=== PATIENT | female | born 1950 | race Caucasian/White ===

== ENCOUNTER → 2018-08-27 | Outpatient (CLI) | payer MEDICARE ==
--- NOTE | 2018-08-27 17:04 | RAD ---
Left knee and right hip radiograph 08/27/2018 4:10 PM INDICATION: Chronic left knee pain. Chronic right hip pain COMPARISON: None available. TECHNIQUE: 3 views of the left knee and 2 views the right hip are provided. FINDINGS: Right hip: Joint spaces are maintained. There is no acute fracture or dislocation. No regional soft tissue swelling. Pubic symphysis is intact. Superior and inferior pubic rami are intact. Left knee: There is no acute fracture or dislocation. Bone mineralization is within normal limits. Mild medial and moderate lateral femorotibial joint space narrowing. Regional soft tissues are within normal limits. There is no soft tissue gas or osseous erosion. There is small knee joint effusion. IMPRESSION: 1. No acute fracture or dislocation involving the right hip. 2. 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 Small knee joint effusion. Electronically signed by: Deloris Stern MD (08/27/2018 4:59 PM) [id number]
== END | disposition home or self-care (01) ==
LOC: RAD 15:35
PROVIDERS: ATTEND Family Medicine
DX: M17.12 Unilateral primary osteoarthritis, left knee (principal); M25.551 Pain in right hip
CPT/HCPCS: 73502; 73562

== ENCOUNTER → 2019-09-27 | Outpatient (CLI) | payer MEDICARE ==
--- NOTE | 2019-09-27 08:36 | KCIC ---
EXAM: Dual energy x-ray absorptiometry (DEXA). HISTORY: Postmenopausal female presents for osteoporosis screening. COMPARISON: None. TECHNIQUE: Dual energy x-ray absorptiometry of the lumbar spine and left hip was performed. Calculation of bone mineral density based on standard deviations above or below the expected young adult normal value (T-score) was completed. FINDINGS: The average bone mineral density in the 1st through 4th lumbar vertebrae is 0.813 g/cmxcm, corresponding with a T-score of -2.1. The average total bone mineral density in the left hip is 0.695 g/cmxcm, corresponding with a T-score of -2.0. IMPRESSION: Osteopenia. Note: Definitions established by the World Health Organization: 1. Normal: T-score is -1.0 or above. 2. Osteopenia: T-score is between -1.0 and -2.5 . 3. Osteoporosis: T-score is -2.5 or below. Electronically signed by: Paula Guardado MD (09/27/2019 8:33 AM) [facility] [place]
--- NOTE | 2019-09-27 09:27 | KCIC ---
EXAM: Abdominal aortic sonogram. HISTORY: Abdominal aortic aneurysm screening. TECHNIQUE: Sonographic imaging of the abdomen was performed. COMPARISON: None. FINDINGS: The proximal abdominal aorta measures 1.8 cm. The mid abdominal aorta measures 1.4 cm. The distal abdominal aorta measures 1.3 cm. There is partially calcified atherosclerotic plaque within the aorta and iliac bifurcation. The common iliac arteries are normal in caliber. IMPRESSION: No sonographic evidence of an abdominal aortic aneurysm. Electronically signed by: Paula Guardado MD (09/27/2019 9:23 AM) [facility] [place] [facility] [place]
== END | disposition home or self-care (01) ==
LOC: KCIC DEXA 07:59
PROVIDERS: ATTEND Family Medicine
DX: Z13.6 Encounter for screening for cardiovascular disorders (principal); I70.0 Atherosclerosis of aorta; M85.80 Other specified disorders of bone density and structure, unspecified site; Z78.0 Asymptomatic menopausal state; Z82.49 Family history of ischemic heart disease and other diseases of the circulatory system; Z87.891 Personal history of nicotine dependence
CPT/HCPCS: 76770; 77080

== ENCOUNTER → 2020-06-21 | Outpatient (CLI) | payer MEDICARE ==
--- NOTE | 2020-06-21 15:14 | KCIC ---
THYROID ULTRASOUND History: Thyromegaly, on thyroid medication for many years Comparison: None. Findings: Multiple sonographic images of the thyroid gland are submitted. Right lobe measured 6.4 x 2.6 x 3.4 cm. Left lobe measured 6.5 x 2.4 x 2.9 cm. Isthmus measured 1.1 cm in AP thickness. There is diffuse heterogeneity of the thyroid parenchyma bilaterally, no discrete nodularity demonstrated. Impression: 1. There is thyromegaly, diffuse heterogeneity of the thyroid parenchyma without discrete nodularity demonstrated. Electronically signed by: Chase Mcbride MD (06/21/2020 3:12 PM) [facility]
--- NOTE | 2020-06-22 10:02 | KCIC ---
Bilateral digital screening mammograms: Reason for examination: Routine screening. Comparison is made to previous studies dated back to 07/20/2014. Interpretation was made with the benefit of CAD. The skin and nipples show no abnormalities. No abnormal axillary lymph nodes are seen. The breast parenchyma is heterogeneously dense. (Breast density: Category C.) There appear to be nodular densities in the upper outer quadrant of the right breast at approximately the 10:00 B and 10:30 C positions. There are also small nodular densities in the anterior left breast at the 9:00 position. Further evaluation with ultrasound is recommended. There are no suspicious calcifications seen. Impression: Nodular densities in the upper outer quadrant of the right breast and anteriorly in the left breast. Recommend further evaluation with ultrasound. Your patient's mammogram demonstrates that she has dense breast tissue (breast density category C or D), which could hide abnormalities, and if she has other risk factors for breast cancer that have been identified, she might benefit from supplemental screening tests that may be suggested by you as her ordering physician. Dense breast tissue, in and of itself, is a relatively common condition. Therefore, this information is not provided to cause undue concern, but rather to raise your awareness and to promote discussion with your patient regarding the presence of other risk factors, in addition to dense breast tissue. Your patient's mammography results will be sent to her. BI-RAD Category 0: Incomplete. Needs additional imaging evaluation. "Our facility is accredited by the [employer] Mammography Program." This patient's information has been entered into a reminder system for the patient to be notified with the results of her examination and a target date for the next mammogram. Electronically signed by: Kim Hendricks MD (06/22/2020 9:59 AM) [email or web address]
== END ==
LOC: KCIC US 14:32
PROVIDERS: ATTEND Family Medicine
DX: Z12.31 Encounter for screening mammogram for malignant neoplasm of breast (principal); E01.0 Iodine-deficiency related diffuse (endemic) goiter; N64.89 Other specified disorders of breast
CPT/HCPCS: 76536; 77067

== ENCOUNTER → 2020-07-11 | Outpatient (CLI) | payer MEDICARE ==
--- NOTE | 2020-07-11 09:50 | KCIC ---
Bilateral breast ultrasound: Reason for examination: Nodular densities bilaterally on mammographic screening. Comparison is made to mammographic exam dated 06/21/2020. Ultrasound examination was performed in the areas of mammographic concern and at the axilla bilaterally. In the right breast, there is a nodular patch of fibroglandular tissue at the 11:00 position 2 cm from the nipple which shows no abnormality with fremitus. This is probably benign but recommend close follow-up with reevaluation in 6 months. No other abnormalities are seen in the right breast or axilla. In the left breast, no discrete cystic or solid nodules or architectural distortions are seen. No abnormal appearing lymph nodes are seen in the left axilla. IMPRESSION: Nodular patch of fibroglandular tissue at the 11:00 position of the right breast which shows no abnormality with fremitus. This is probably benign but recommend close follow-up with right breast ultrasound in 6 months. No abnormality seen left breast. BI-RADS Category 3: Probably Benign. "Our facility is accredited by the [employer] Mammography [employer]." This patient's information has been entered into a reminder system for the patient to be notified with the results of her examination and a target date for the next mammogram. Electronically signed by: Kim Hendricks MD (07/11/2020 9:47 AM) [email or web address]
== END ==
LOC: KCIC US 09:01
PROVIDERS: ATTEND Family Medicine
DX: R92.8 Other abnormal and inconclusive findings on diagnostic imaging of breast (principal); N63.11 Unspecified lump in the right breast, upper outer quadrant
CPT/HCPCS: 76641

== ENCOUNTER → 2021-02-20 | Outpatient (CLI) | payer MEDICARE ==
--- NOTE | 2021-02-20 15:21 | KCIC ---
Right breast ultrasound: Reason for examination: Follow-up fibrocystic changes. Comparison is made to previous study dated 07/20/2020. At the 11:00 position 6 cm from the nipple, there is a hypoechoic circumscribed nodule in parallel or ientation measuring 8.7 mm in size which may represent a small fibroadenoma. . There continues to be a nodular patch of fibroglandular tissue in the 11:00 position 2 cm from the nipple which is stable. At the 10:00 position 7.5 cm from the nipple, there appears to be some minimal fibrocystic type yu e. No abnormal appearing lymph nodes are seen in the axilla. IMPRESSION: Small hypoechoic circumscribed nodule posterolateral representing a fibroadenoma 11:00 position. Fibrocystic type changes at the 10:00 position. Recommend continued 6 month follow-up with ultrasound of the time of bilateral mammograms. BI-RADS Category 3: Probably Benign. "Our facility is accredited by the [employer]amm[employer]." This patient's information has been entered into a reminder system for the patient to be notified wit h the results of her examination and a target date for the next mammogram. Electronically signed by: Kim Hendricks MD (02/20/2021 3:18 PM) [email or web address]
== END ==
LOC: KCIC US 07:56
PROVIDERS: ATTEND Family Medicine
DX: N63.11 Unspecified lump in the right breast, upper outer quadrant (principal); R92.8 Other abnormal and inconclusive findings on diagnostic imaging of breast
CPT/HCPCS: 76641

== ENCOUNTER 2021-06-28 07:52 | Emergency (ER) | payer MEDICARE ==
[~2021-06-28] VITALS: Ht 177.8 cm; Wt 65.1 kg
--- NOTE | 2021-06-28 08:32 | PHYS DOC ---
Past Medical History Past Medical History: Hypothyroid, Other Additional Past Medical Histor: Restless leg syndrome Past Surgical History: Cholecystectomy, Other Additional Past Surgical Histo: Tubal ligation Adult General Chief Complaint Chief Complaint: ABDOMINAL PAIN HPI HPI Patient is a 71 year old f who presents with left lower quadrant abdominal pain. She says the pain began around 2am this morning but was at its worst at 3am. The pain began in the LLQ and did not migrate, lasting 1-2 hours. She said she has not had pain like this before and says it is sharp and stabbing, and at its worst it was 8/10. No positions could make her comfortable, but the pain was worst when laying down and slightly better when bending forward. She says the only medication she had on hand was rolaids and this did not help the pain. She had a normal BM the night before and says she has had no issues with urination. She currently has no pain but describes a dull pressure in her lower abdomen. Review of Systems Review of Systems Fourteen body systems of review of systems have been reviewed. See HPI for pertinent positives and negative responses, other castelan all other systems are negative, non-pertinent or non-contributory Current Medications Current Medications Current Medications Medications (Trade) Dose Ordered Sig/Sharlene Start Time Stop Time Status Last Admin Dose Admin Info (CONTRAST GIVEN -- Rx MONITORING) 1 each PRN DAILY PRN 06/28/21 09:45 06/28/21 10:27 DC Iohexol (Omnipaque 300 Mg/ml) 75 ml 1X ONCE 06/28/21 09:30 06/28/21 09:33 DC 06/28/21 09:46 75 ML Allergies Allergies Allergies Coded Allergies Type Severity Reaction Last Updated Verified phenobarbital Allergy Severe 06/28/21 Yes Physical Exam Physical Exam Constitutional: Well developed, well nourished, no acute distress, non-toxic appearance. HENT: Normocephalic, atraumatic, bilateral external ears normal, oropharynx moist, no oral exudates, nose normal. Eyes: PERRLA, EOMI, conjunctiva normal, no discharge. Neck: Normal range of motion, no tenderness, supple, no stridor. Cardiovascular: Heart rate regular, sinus rhythm, no murmurs rubs or gallops Lungs & Thorax: Bilateral breath sounds clear to auscultation Abdomen: Bowel sounds normal, soft, no tenderness, no masses, no pulsatile masses. Nonsurgical abdomen, no peritoneal signs Skin: Warm, dry, no erythema, no rash. Back: No tenderness, no CVA tenderness. Extremities: No tenderness, no cyanosis, no clubbing, ROM intact, no edema. Neurologic: Alert and oriented X 3, grossly normal motor & sensory function, no focal deficits noted. Psychologic: Affect normal, judgement normal, mood normal. Current Patient Data Vital Signs Vital Signs Date Time Temp Pulse Resp B/P (MAP) Pulse Ox O2 Delivery O2 Flow Rate FiO2 06/28/21 10:02 98.3 92 18 171/77 (108) 97 Room Air 98.3 Lab Values Laboratory Tests Test 06/28/21 07:58 06/28/21 08:20 Urine Color Yellow Urine Clarity Turbid Urine pH 8.0 (<5.0-8.0) Urine Specific [place] 1.015 (1.000-1.030) Urine Protein Negative mg/dL (NEG-TRACE) Urine Glucose (UA) Negative mg/dL (NEG) Urine Ketones (Stick) 15 mg/dL (NEG) Urine Blood Small (NEG) Urine Nitrite Negative (NEG) Urine Bilirubin Negative (NEG) Urine Urobilinogen Dipstick 0.2 mg/dL (0.2 mg/dL) Urine Leukocyte Esterase Negative (NEG) Urine RBC Occ /HPF (0-2) Urine WBC 0 /HPF (0-4) Urine Squamous Epithelial Cells Few /LPF Urine Bacteria 0 /HPF (0-FEW) Urine Mucus Marked /LPF White Blood Count 8.7 x10^3/uL (4.0-11.0) Red Blood Count 4.71 x10^6/uL (3.50-5.40) Hemoglobin 14.2 g/dL (12.0-15.5) Hematocrit 41.5 % (36.0-47.0) Mean Corpuscular Volume 88 fL (79-100) Mean Corpuscular Hemoglobin 30 pg (25-35) Mean Corpuscular Hemoglobin Concent 34 g/dL (31-37) Red Cell Distribution Width 12.9 % (11.5-14.5) Platelet Count 214 x10^3/uL (140-400) Neutrophils (%) (Auto) 78 % (31-73) H Lymphocytes (%) (Auto) 16 % (24-48) L Monocytes (%) (Auto) 5 % (0-9) Eosinophils (%) (Auto) 0 % (0-3) Basophils (%) (Auto) 1 % (0-3) Neutrophils # (Auto) 6.8 x10^3/uL (1.8-7.7) Lymphocytes # (Auto) 1.4 x10^3/uL (1.0-4.8) Monocytes # (Auto) 0.4 x10^3/uL (0.0-1.1) Eosinophils # (Auto) 0.0 x10^3/uL (0.0-0.7) Basophils # (Auto) 0.1 x10^3/uL (0.0-0.2) Sodium Level 139 mmol/L (136-145) Potassium Level 4.3 mmol/L (3.5-5.1) Chloride Level 101 mmol/L (98-107) Carbon Dioxide Level 29 mmol/L (21-32) Anion Gap 9 (6-14) Blood Urea Nitrogen 12 mg/dL (7-20) Creatinine 0.8 mg/dL (0.6-1.0) Estimated GFR (Cockcroft-Gault) 70.5 BUN/Creatinine Ratio 15 (6-20) Glucose Level 113 mg/dL (70-99) H Calcium Level 9.4 mg/dL (8.5-10.1) Total Bilirubin 0.7 mg/dL (0.2-1.0) Aspartate Amino Transferase (AST) 29 U/L (15-37) Alanine Aminotransferase (ALT) 25 U/L (14-59) Alkaline Phosphatase 79 U/L (46-116) Troponin I High Sensitivity 5 ng/L (4-50) Total Protein 7.4 g/dL (6.4-8.2) Albumin 4.1 g/dL (3.4-5.0) Albumin/Globulin Ratio 1.2 (1.0-1.7) Lipase 117 U/L (73-393) Laboratory Tests 06/28/21 08:20 Laboratory Tests 06/28/21 08:20 EKG EKG EKG ordered and interpreted by myself at 0850 hrs. is sinus rhythm at 90 bpm, unremarkable intervals, no axis deviation, no acute ischemic findings, no STEMI Radiology/Procedures Radiology/Procedures EXAM: Abdomen and pelvis CT with intravenous contrast. HISTORY: Left lower quadrant pain. TECHNIQUE: Computed tomographic images of the abdomen and pelvis were obtained with intravenous contrast. Multiplanar reformatting was performed. *One or more of the following individualized dose reduction techniques were utilized for this examination: 1. Automated exposure control. 2. Adjustment of the mA and/or kV according to patient size. 3. Use of iterative reconstruction technique. COMPARISON: None. FINDINGS: Evaluation of the lower thorax demonstrates right greater than left basilar atelectasis. There is no infiltrate or pleural effusion. There is mild biliary ductal dilatation likely due to reservoir effect status post cholecystectomy. No suspicious hepatic lesion is seen. The pancreas, spleen and adrenal glands are unremarkable. There is mild bilateral hydronephrosis or pelvicaliectasis. No obstructing lesion is seen. The urinary bladder is unremarkable. There is a calcified fibroid within the left aspect of the uterine fundus. There is no appendicitis. There is a moderate to large amount of colonic stool. There is distal colonic diverticulosis. There is no evidence of diverticulitis. There is no bowel obstruction. There is aortobiiliac atherosclerosis. There is focal saccular dilatation of the left lateral aspect of the mid abdominal aorta which contains thrombus, likely due to thrombus within an ulcerated plaque or thrombosed atherosclerotic ulcer. There are degenerative changes at L4-L5. There is bone demineralization. 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 IMPRESSION: 1. Distal colonic diverticulosis. There is no convincing to ventriculitis. 2. Mild bilateral hydronephrosis or pelvicaliectasis. No obstructing lesion is seen. 3. Calcified uterine fibroid. Electronically signed by: Paula Guardado MD (06/28/2021 9:56 AM) [id number] Course & Med Decision Making Course & Med Decision Making ABCs unremarkable. I disclosed entirety of ER findings and discussed most likely diagnosis of abdominal pain of unknown etiology. I disclosed all findings and benign physical examination and patient who states she has been asymptomatic since ER arrival but just wanted to be evaluated to make sure it was nothing serious. Other diagnoses were discussed with patient such as intra-abdominal abnormalities, ACS and other potentially life-threatening diagnoses but all deemed less likely causes of patient's presentation. Plan of care discussed at length with need for close outpatient follow-up to review today's ER visit stressed. Strict return precautions were also discussed at length with good understanding verbalized by patient. Patient voiced understanding and agreement with the plan. Patient knows to come back for repeat evaluation if concerning signs or symptoms present prior to outpatient follow-up. Hemodynamically stable, ambulatory and well-appearing at time of disposition. Dragon Disclaimer Dragon Disclaimer This electronic medical record was generated, in whole or in part, using a voice recognition dictation system. Departure Departure Impression: Primary Impression: Nonspecific abdominal pain Disposition: HOME / SELF CARE / HOMELESS Condition: STABLE Referrals: SUMA NIXON MD (PCP) Patient Instructions: Abdominal Pain (Nonspecific) Additional Instructions: You have been evaluated in the Emergency Department today for abdominal pain. Your evaluation was not suggestive of any emergent condition requiring medical intervention at this time. However, some abdominal problems make take more time to appear. Therefore, it is important for you to watch for any new symptoms or worsening of your current condition. Please contact your primary care physician immediately after your departure to review visit today and need for close outpatient follow-up Return to the Emergency Department if you experience worsening pain, persistent fevers greater than 100.4, recurrent vomiting, blood in vomit, blood in stool, dark tarry stool, chest pain, difficulty breathing, or any other concerning symptoms. JUNIOR PAUL DO Jun 28, 2021 08:31
[2021-06-28 08:41] LABS: BASO # 0.1 x10^3/uL (0.0-0.2); BASO % 1 % (0-3); EOS % 0 % (0-3); HEMATOCRIT 41.5 % (36.0-47.0); HEMOGLOBIN 14.2 g/dL (12.0-15.5); LYMPH # 1.4 x10^3/uL (1.0-4.8); LYMPH % 16 % (24-48); MEAN CORPUSCULAR HEMOGLOBIN 30 pg (25-35); MEAN CORPUSCULAR HGB CONC 34 g/dL (31-37); MEAN CORPUSCULAR VOLUME 88 fL (79-100); MONO # 0.4 x10^3/uL (0.0-1.1); MONO % 5 % (0-9); NEUT # 6.8 x10^3/uL (1.8-7.7); NEUT % 78 % (31-73); PLATELET COUNT 214 x10^3/uL (140-400); RED BLOOD COUNT 4.71 x10^6/uL (3.50-5.40); RED CELL DISTRIBUTION WIDTH 12.9 % (11.5-14.5); WHITE BLOOD COUNT 8.7 x10^3/uL (4.0-11.0)
[2021-06-28 08:42] LABS: BILIRUBIN,URINE NEGATIVE (NEG); CLARITY,URINE TURBID; COLOR,URINE YELLOW; NITRITE,URINE NEGATIVE (NEG); PROTEIN,URINE NEGATIVE (NEG-TRACE); UROBILINOGEN,URINE 0.2 mg/dL (0.2 mg/dL)
[2021-06-28 08:51] LABS: CALCIUM 9.4 mg/dL (8.5-10.1); CREATININE 0.8 mg/dL (0.6-1.0); GFR 70.5; POTASSIUM 4.3 mmol/L (3.5-5.1)
[2021-06-28 08:57] LABS: ALBUMIN 4.1 g/dL (3.4-5.0); ALBUMIN/GLOBULIN RATIO 1.2 (1.0-1.7); TOTAL BILIRUBIN 0.7 mg/dL (0.2-1.0); TOTAL PROTEIN 7.4 g/dL (6.4-8.2)
[2021-06-28 09:09] LABS: BACTERIA,URINE 0 /HPF (0-FEW); RBC,URINE OCC /HPF (0-2); WBC,URINE 0 /HPF (0-4)
[2021-06-28] MEDS ORDERED: IOHEXOL 300 MG/ML 100ML VIAL. IV ONE (09:30)
[2021-06-28] MEDS ORDERED: CONTRAST GIVEN. MC PRN (09:45)
--- NOTE | 2021-06-28 09:58 | RAD ---
EXAM: Abdomen and pelvis CT with intravenous contrast. HISTORY: Left lower quadrant pain. TECHNIQUE: Computed tomographic images of the abdomen and pelvis were obtained with intravenous contr ast. Multiplanar reformatting was performed. *One or more of the following individualized dose reduction techniques were utilized for this examina tion: 1. Automated exposure control. 2. Adjustment of the mA and/or kV according to patient size. 3. Use of iterative reconstruction technique. COMPARISON: None. FINDINGS: Evaluation of the lower thorax demonstrates right greater than left basilar atelectasis. Th ere is no infiltrate or pleural effusion. There is mild biliary ductal dilatation likely due to reser voir effect status post cholecystectomy. No suspicious hepatic lesion is seen. The pancreas, spleen a nd adrenal glands are unremarkable. There is mild bilateral hydronephrosis or pelvicaliectasis. No obstructing lesion is seen. The urinar y bladder is unremarkable. There is a calcified fibroid within the left aspect of the uterine fundus. There is no appendicitis. There is a moderate to large amount of colonic stool. There is distal colon ic diverticulosis. There is no evidence of diverticulitis. There is no bowel obstruction. There is aortobiiliac atherosclerosis. There is focal saccular dilatation of the left lateral aspect of the mid abdominal aorta which contains thrombus, likely due to thrombus within an ulcerated plaque or thrombosed atherosclerotic ulcer. There are degenerative changes at L4-L5. There is bone demineralization. 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 IMPRESSION: 1. Distal colonic diverticulosis. There is no convincing to ventriculitis. 2. Mild bilateral hydronephrosis or pelvicaliectasis. No obstructing lesion is seen. 3. Calcified uterine fibroid. Electronically signed by: Paula Guardado MD (06/28/2021 9:56 AM) [id number]
[2021-06-28 10:02] VITALS: BP 171/77
--- NOTE | 2021-06-28 16:32 | EKG ---
[facility] [address] [place] [address] Test Date: 2021-06-28 Test Time: 08:43:11 Pat Name: NEGRITA SAMUEL Department: Room: Gender: F Clinical Analyst: : 1950 Requested By: JUNIOR PAUL Order Number: [id number] Reading MD: Raheel Cobb Measurements Intervals [place] Rate: 90 P: 70 [place]: 130 QRS: 41 QRSD: 86 T: 45 QT: 356 QTc: 440 Interpretive Statements SINUS RHYTHM Electronically Signed On 06-29-2021 13:31:46 CDT by Raheel Cobb
== END 2021-06-28 10:27 | disposition home or self-care (01) ==
LOC: ER 08:48
DX: R10.32 Left lower quadrant pain (principal); E03.9 Hypothyroidism, unspecified; Z90.49 Acquired absence of other specified parts of digestive tract; Z98.51 Tubal ligation status; Z88.8 Allergy status to other drugs, medicaments and biological substances
CPT/HCPCS: 36415; 74177; 80053; 81001; 83690; 84484; 85025; 93005; 99285; Q9967

== ENCOUNTER → 2021-08-23 | Outpatient (CLI) | payer MEDICARE ==
--- NOTE | 2021-08-23 10:40 | KCIC ---
BILATERAL DIAGNOSTIC 3-D MAMMOGRAPHY AND RIGHT BREAST ULTRASOUND History: Six-month follow-up right breast. Patient is due for bilateral screening mammogram. Comparison: Bilateral mammogram June 21, 2020 and prior years. Right breast ultrasound February 20 and July 11, 2020. Technique: Routine MLO and CC tomosynthesis (3D) digital views performed. Images reviewed by the radi ologist at dedicated workstation. Findings: Breast Tissue Density C : The breasts are heterogeneously dense, which may obscure small masses. Bilateral glandular nodularity is unchanged. There are no dominant masses, suspicious microcalcifications or architectural distortion. Real-time ultrasound imaging of the right breast is performed. Heterogeneous, nodular fibroglandular tissue at the 11:00 position 2 cm from the nipple is unchanged. Color Doppler interrogation is negative. There are 2 subcentimeter intramammary lymph nodes versus f at lobules at the 11:00 position 6 cm from the nipple. There are no abnormal axillary lymph nodes. IMPRESSION: 1. No mammographic evidence of malignancy. 2. Heterogeneous, nodular fibroglandular tissue at the 11:00 position 2 cm from the nipple in the ri ght breast is unchanged. Recommend ultrasound follow-up in 6 months. BI-RADS category 3: Probably benign. The images were reviewed with computer-aided detection. Patient information is entered into the reminder system with a target due date for the next screening mammogram. Mammography is the most sensitive method for finding small breast cancers, but it does not detect the m all and is not a substitute for careful clinical examination. A negative mammogram does not negate a clinically suspicious finding and should not result in delay in biopsying a clinically suspicious a bnormality. "Our facility is accredited by the [employer] Mammography Program." Electronically signed by: Cabrera King MD (08/23/2021 10:38 AM) [email or web address]
== END ==
LOC: KCIC MAMMO 08:08
PROVIDERS: ATTEND Family Medicine
DX: R92.8 Other abnormal and inconclusive findings on diagnostic imaging of breast (principal)
CPT/HCPCS: 76641; 77066; G0279; 77062